=== PATIENT | male | born 1960 | race Caucasian/White ===

== ENCOUNTER 2020-03-23 08:51 | Emergency (ER) | payer MEDICARE, OTHER ==
[~2020-03-23] VITALS: Ht 177.8 cm; Wt 65.8 kg
[2020-03-23] MEDS ORDERED: MODA200 PO (10:14)
[2020-03-23] MEDS ORDERED: Percocet 5-3251 EACH PO (10:56)
[2020-03-23] MEDS ORDERED: IBUP400 PO (10:56)
== END 2020-03-23 11:15 | disposition home or self-care (01) ==
LOC: ER 08:51
DX: S42.212A Unspecified displaced fracture of surgical neck of left humerus, initial encounter for closed fracture (principal); F17.210 Nicotine dependence, cigarettes, uncomplicated; W01.0XXA Fall on same level from slipping, tripping and stumbling without subsequent striking against object, initial encounter
CPT/HCPCS: 29105; 73030; 96372-59; 99283-25; J1170